=== PATIENT | female | born 1955 | race Caucasian/White ===

== ENCOUNTER 2016-10-16 03:47 | Inpatient (IN) ==
[2016-10-11 15:45] LABS: URINE MICRO REVIEW NEEDED? NO; URINE SOURCE VOIDED
[2016-10-11 15:50] LABS: BILIRUBIN URINE NEGATIVE (NEGATIVE); BLOOD URINE NEGATIVE (NEGATIVE); COLOR YELLOW; GLUCOSE URINE NEGATIVE (NEGATIVE); LEUKOCYTES URINE NEGATIVE (NEGATIVE); NITRITE URINE NEGATIVE (NEGATIVE); PROTEIN URINE NEGATIVE (NEGATIVE); SP GRAVITY URINE 1.003; TURBIDITY URINE CLEAR (CLEAR); UROBILINOGEN URINE NORMAL (NORMAL)
[2016-10-11 15:51] LABS: HEMATOCRIT 38.9 % (37.0-47.0); HEMOGLOBIN 13.2 g/dL (12.0-16.0); MCH 30.3 PG (27-31); MCHC 33.9 g/dL (33-37); MCV 89.2 FL (81-99); RBC 4.36 XMIL (4.2-5.4)
--- NOTE | 2016-10-11 15:51 | EKG Report ---
Test Performed on : 10/11/2016 3:33:14 PM Test Reason : PAT Blood Pressure : / mmHG Vent. Rate : 065 BPM Atrial Rate : 065 BPM P-R Int : 154 ms QRS Dur : 080 ms QT Int : 426 ms P-R-T Axes : 078 070 074 degrees QTc Int : 443 ms Normal sinus rhythm. Normal ECG No previous ECGs available Confirmed by Ginny MARQUEZ, Christopher Amaya ([id number]) on 10/12/2016 7:03:33 AM
[2016-10-11 15:52] LABS: UR EPITHELIAL CELLS <10 /HPF (<10); URINE BACTERIA NEGATIVE /HPF; URINE RBC <10 /HPF (<10); URINE WBC <10 /HPF (<10)
[2016-10-11 16:16] LABS: AGAP 12; ALBUMIN 4.7 g/dL (3.5-5.0); ALKALINE PHOSPHATASE 62 U/L (32-104); BUN 10 mg/dL (8-22); CALCIUM 9.6 mg/dL (8.8-10.2); CHLORIDE 100 mmol/L (98-107); COSMO 278; GOT 17 U/L (10-30); GPT 12 U/L (10-36); SODIUM 140 mmol/L (136-145); TCO2 28 mmol/L (25-35); TOTAL PROTEIN 6.8 g/dL (6.3-8.3)
[2016-10-16] MEDS ORDERED: PEPCID ONE (06:56)
[2016-10-16] MEDS ORDERED: LOVENOX ONE (06:56)
[2016-10-16] MEDS ORDERED: REGLAN ONE (06:56)
[2016-10-16] MEDS ORDERED: TRANSDERM-SCOP ONE (06:56)
[2016-10-16] MEDS ORDERED: LR 1,000 ML ONE ×2 (06:57→12:25)
[2016-10-16] MEDS ORDERED: KEFZOL 2 GM/D5W 2 GM/50 ML IVPB ONE (06:57)
[2016-10-16] MEDS ORDERED: VALIUM ONE (07:35)
[2016-10-16] MEDS ORDERED: MURI-LUBE MINERAL OIL ONE (10:44)
[2016-10-16] MEDS ORDERED: EXPAREL 1.3% ONE (10:44)
[2016-10-16] MEDS ORDERED: NS 250 ML ONE ×2 (10:44→15:27)
[2016-10-16] MEDS ORDERED: BACITRACIN ONE (10:44)
[2016-10-16] MEDS ORDERED: METHYLENE BLUE 0.5% ONE (10:46)
--- NOTE | 2016-10-16 11:10 | Diag Imaging Result Doc PS360 ---
LYMPHOSCINTIGRAPHY W/IMG - 10/16/2016 INDICATION: L-MAST COMPARISON: None FINDINGS: 479 uCi of radiotracer was injected into the left breast. After the appropriate delay, there was successful visualization of at least one sentinel lymph node in the axilla. IMPRESSION: Successful lymphoscintigraphy of the breast. Electronically signed by Zeke Armendariz 10/16/2016 11:07 AM
[2016-10-16] MEDS ORDERED: SUFENTA ONE (11:44)
[2016-10-16 14:02] LABS: URINE MICRO REVIEW NEEDED? NO; URINE SOURCE CATH
[2016-10-16 14:05] LABS: BILIRUBIN URINE NEGATIVE (NEGATIVE); BLOOD URINE NEGATIVE (NEGATIVE); COLOR YELLOW; GLUCOSE URINE NEGATIVE (NEGATIVE); LEUKOCYTES URINE NEGATIVE (NEGATIVE); NITRITE URINE NEGATIVE (NEGATIVE); PH URINE 6.5; PROTEIN URINE NEGATIVE (NEGATIVE); SP GRAVITY URINE 1.011; TURBIDITY URINE CLEAR (CLEAR); UR EPITHELIAL CELLS <10 /HPF (<10); URINE BACTERIA NEGATIVE /HPF; URINE RBC <10 /HPF (<10); URINE WBC <10 /HPF (<10); UROBILINOGEN URINE NORMAL (NORMAL)
[2016-10-16] MEDS ORDERED: NS 2,000 ML ONE (14:52)
[2016-10-16] MEDS ORDERED: KEFZOL 1 GM/D5W 1 GM/50 ML IVPB ONE (15:53)
[2016-10-16] MEDS: DEMEROL ONE ×2 (18:15→18:58)
[2016-10-16] MEDS ORDERED: VERSED ONE (18:19)
[2016-10-16] MEDS ORDERED: DIPRIVAN 1% ONE (18:20)
[2016-10-16] MEDS ORDERED: MORPHINE PCA ONE (18:38)
[2016-10-16] MEDS ORDERED: MORPHINE PCA IV PRN ×2 (18:47→21:27)
[2016-10-16] MEDS ORDERED: ZOFRAN IV PRN ×2 (18:47→21:27)
[2016-10-16] MEDS ORDERED: NARCAN IV PRN ×2 (18:47→21:27)
[2016-10-16] MEDS ORDERED: NARCAN 0.4 MG in LR 1,000 ML IV PRN (18:47)
[2016-10-16] MEDS ORDERED: DEMEROL ONE (18:57)
[2016-10-16] MEDS ORDERED: LR 1,000 ML IV SCH (21:27)
[2016-10-16] MEDS: PERIDEX MT SCH (21:46)
--- NOTE | 2016-10-16 21:47 | OPERATIVE NOTE ---
PROCEDURE DATE: 10/16/2016 PREOPERATIVE DIAGNOSIS: 1. 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 2. Previous breast implants. POSTOPERATIVE DIAGNOSIS: 1. 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 2. Previous breast implants. PROCEDURE: 1. Left mastectomy and sentinel lymph node biopsy. 2. [place] lymph node mapping. 3. Removal of left breast implant. SURGEON: Rasheed Moore MD. PLASTICS NURSE: Dr. Yin with Plastic Surgery assisted with the removal of the implant and the mastectomy. ANESTHESIA: General endotracheal. INTRAOPERATIVE FINDINGS: As above. COMPLICATIONS: None at time of dictation. ESTIMATED BLOOD LOSS: 50 mL. SPECIMENS REMOVED: Breast tissue, with single stitch being superior, double stitch being medial. [place] lymph node #1 with a count of 7481. [place] lymph node #2 with a count of 123. BRIEF HISTORY: The patient is a 60-year-old female with biopsy- proven breast cancer in her left upper outer breast. She does have breast implants with very small [place] breast tissue. Given this, we elected to do a mastectomy and sentinel lymph node biopsy and had Dr. Yin coordinate to do reconstruction. He assisted in the dissection to remove the implant. The risks, benefits and alternatives were discussed. All questions answered. DESCRIPTION OF PROCEDURE: After informed consent was obtained, patient brought to the operative theatre, transferred to operating table, placed in supine position. General endotracheal anesthesia was then performed without complication. A formal time-out was then performed, confirming patient, date, procedure. All were agreement. At that time, attention to the left breast. This area was prepped and draped in sterile fashion. She had previously gone down to nuclear medicine and had an injection. We did find an area of uptake in her left axilla. We made an elliptical incision per the markings for reconstruction by Dr. Yin through the subcutaneous tissue, down through the [place] breast tissue. Her [place] breast tissue was somewhat distorted given her left breast implant. We encountered the capsule of the implant inferiorly. We encountered the pectoralis major superiorly. We dissected with our landmarks being medial the sternum, superiorly the clavicle, laterally the axilla and inferiorly along the edge of the capsule. We did remove the breast implant along with the capsular tissue all the way down to the pectoralis major. We oriented the breast as described above. We then did sentinel lymph node mapping, found uptake in the left axilla, found 2 areas that were sent down to Pathology. The first one was labeled sentinel lymph node #1, contained 3 lymph nodes that were all negative on preliminary evaluation. The 2nd specimen labeled sentinel lymph node #2 contained two lymph nodes that were preliminarily negative for cancer. We irrigated the area. We turned the case over to Dr. Yin for reconstruction. Please see his notes and his dictation. cc: Rasheed Moore MD [facility]
[2016-10-16] MEDS: KEFZOL 1 GM/D5W 1 GM/50 ML IVPB IV SCH (23:32)
[2016-10-17] MEDS: LR 1,000 ML IV SCH ×6 (02:22→23:01)
[2016-10-17] MEDS: KEFZOL 1 GM/D5W 1 GM/50 ML IVPB IV SCH ×3 (06:32→22:31)
--- NOTE | 2016-10-17 06:34 | PROGRESS NOTE ---
DATE: 10/17/2016 SUBJECTIVE: The patient doing well. She has some soreness from her procedure but otherwise doing okay. She also reports some mild nausea but is able tolerate p.o. OBJECTIVE: Vital Signs: Patient is currently afebrile. Her vital signs are stable. DONAVAN drain outputs for DONAVAN drain #1-7 reviewed. All appear to have serosanguineous output. General: No acute distress. Cardiovascular: Regular rate and rhythm. Lungs: Grossly clear. Chest wall incision is healing okay with dressing in place. No obvious hematoma noted. DONAVAN drains as noted above. LABORATORY: None. ASSESSMENT/PLAN: A 60-year-old female, status post left mastectomy with sentinel lymph node biopsy and breast reconstruction with latissimus dorsi flap. Postoperative state at this time, patient is doing relatively well. Her care in the hospital will be mainly determined by Dr. Yin. DONAVAN drains per Dr. Yin, but hopefully she will go home the next day or 2. cc: Rasheed Moore MD
[2016-10-17] MEDS ORDERED: LUBRIFRESH PM OPH OINTMENT ONE (07:09)
[2016-10-17] MEDS ORDERED: ZOFRAN ONE (07:09)
[2016-10-17] MEDS ORDERED: STERILE WATER INJ. ONE (07:09)
[2016-10-17] MEDS ORDERED: NEOSTIGMINE ONE (07:09)
[2016-10-17] MEDS ORDERED: NEO-SYNEPHRINE ONE (07:09)
[2016-10-17] MEDS ORDERED: XYLOCAINE-MPF 2% ONE (07:10)
[2016-10-17] MEDS ORDERED: ROBINUL ONE (07:10)
[2016-10-17] MEDS ORDERED: QUELICIN (DOSE) ONE (07:10)
[2016-10-17] MEDS ORDERED: LR 3,000 ML ONE (07:10)
[2016-10-17] MEDS: PERIDEX MT SCH ×2 (08:40→22:32)
--- NOTE | 2016-10-17 15:19 | OPERATIVE NOTE ---
PROCEDURE DATE: 10/17/2016 PROCEDURE: Left breast reconstruction with a left latissimus dorsi flap and a placement of a left tissue chimney supervisor brick. SURGEON: Dr. Paresh Yin. The ICD 10 diagnose code for this case is Z85.3, personal history [place]. [place] [address] latissimus dorsi flap and 32580, tissue chimney supervisor brick. INDICATION FOR PROCEDURE: This patient is a 60-year-old, white female with a left breast cancer which is complicated by the fact that it is in the upper outer quadrant and it is over old saline implants that were placed many years ago. She needs a mastectomy to take care of the cancer and her reconstruction is complicated by the fact that her tissues will be thinned out by the previous augmentation. So, the plan is to do the mastectomy along with Dr. Moore so that we can remove the tumor and deal with the implant and then because her tissue will be stretched out she will not have enough muscular coverage for regular tissue chimney supervisor brick reconstruction so our plan is to do a latissimus dorsi flap to bring in healthy tissue. DESCRIPTION OF PROCEDURE: The patient was brought to the operating room. The patient was seen in the office for informed consent for this procedure on 10/11/2016. At that point, she understood that she would have her reconstruction with latissimus dorsi flap after the mastectomy and we would either put in an implant or chimney supervisor brick depending on how tight the tissues felt. She understood there would be a period of time where she would not have optimal breast shape. She knows the risks include infection, blood loss, blood clots in legs, heart problems, lung problems, allergic reactions, or blood and serum collections in the operative sites which might require drainage. She understands the exact size and shape cannot be guaranteed as with nonoperative breasts, there can be some asymmetry from side to side. She understands we will use her latissimus dorsi muscle from the left side. It will not affect her arm use. She knows where her incisions will be on the front of the chest where we have to inset the ellipse and where her donor site scar will be on the back of the chest. PROCEDURE: The patient was brought to the operating room after she was marked in outpatient surgery for the elliptical excision. She went to the operating room, and was prepped and draped from the back to the front. The mastectomy was performed assisting Dr. Moore as we did the elliptical excision and removed the implant and raised the mastectomy flaps. He subsequently did sentinel node biopsy and then the reconstruction began. The ellipse of the latissimus dorsi flap was elevated on the back on the back over the muscle. Then the anterior border of the muscle was identified. The skin flaps were elevated to free the muscle and the muscle was cut away from the chest dealing with the bleeders with electrocautery. Once it was freed up, and it was able to be rotated it was brought through a hole that was made through the axilla and brought to the front of the chest. Two drains were placed in the donor site. It was temporally tacked closed with silk sutures and it was closed with 2-0 Polysorb interrupted sutures in the fibrous fat, a running 3-0 Polysorb deep dermal suture, followed by running 4-0 Biosyn subcuticular stitch. On the anterior chest the latissimus muscle was sutured into the inframammary fold and the bottom border of the pectoralis muscle with some 3-0 Polysorb sutures. The implant that was removed from the patient was labeled as a 375 implant. It was saline filled. The blueprint clerk was not stamped on the implant. So a 330 mL sizer was placed into the pocket and filled to 360. It was noted that we would not be able to get up to this volume with this patient because the elliptical excision for the mastectomy was wider than the ellipse of skin I did bring in from the back so things would be too tight and I did not want to risk ruining perfusion to the flap. Therefore it was decided to put in an chimney supervisor brick in this patient and stretch out the skin later after she was healed. So a 400 mL [place] chimney supervisor brick was placed into the pocket. It was filled to 200 mL and then the muscle was closed and the skin was temporally tacked closed. The skin was closed with some 3-0 Polysorb interrupted deep dermal sutures and then a running 4-0 Biosyn subcuticular stitch. Drains were placed under and over the implant and on the superior inferior skin flaps, and a 10-Czech drain was placed in the lymph node sampling area. That was isolated from the rest of the skin pocket by closing down the fat. All the drains were secured with silk drain stitches. She tolerated the procedure well. The type of chimney supervisor brick that was used in the patient was an [employer] 133 MB- 13-T implant. It is a 400 mL size chimney supervisor brick. It was filled to 200 mL in the operating room. cc: MD Rasheed Cano MD
[2016-10-18] MEDS: KEFZOL 1 GM/D5W 1 GM/50 ML IVPB IV SCH ×3 (06:13→16:07)
--- NOTE | 2016-10-18 06:25 | PROGRESS NOTE ---
DATE: 10/18/2016 SUBJECTIVE: Patient doing well. OBJECTIVE: Vital Signs: Patient is currently afebrile. Her vital signs are stable. Is and Os: DONAVAN drain output is reviewed, all appeared serosanguineous. General Examination: No acute distress. Cardiovascular: Regular rate and rhythm. Lungs: Grossly clear. Chest: Chest wall incision is healing well with dressing in place. No obvious hematoma noted. DONAVAN drains as noted above. Laboratory: None. ASSESSMENT/PLAN: A 60-year-old, female status post left mastectomy and sentinel lymph node biopsy with breast reconstruction with latissimus dorsi flap. Patient is currently doing well. There is potential for discharge later today by Dr. Yin. cc: Rasheed Moore MD
[2016-10-18] MEDS: PERIDEX MT SCH (09:32)
[2016-10-18] MEDS: NORCO-10 PO PRN ×3 (09:41→18:00)
[2016-10-18] MEDS: LR 1,000 ML IV SCH (14:39)
[2016-10-18 15:58] VITALS: BP 101/58
--- NOTE | 2016-10-18 18:19 | DISCHARGE SUMMARY ---
ADMISSION DATE: 10/16/2016 DISCHARGE DATE: 10/18/2016 ADMISSION DIAGNOSIS: Left breast cancer. DISCHARGE DIAGNOSIS: Left breast cancer. HOSPITAL COURSE: The patient has been at the hospital via outpatient surgery where preoperative loera were made for a mastectomy to be performed by Dr. Rasheed Moore and breast reconstruction with a left latissimus dorsi flap. The patient went to the operating room and had an uncomplicated mastectomy and an uncomplicated latissimus dorsi flap which was used to cover a 400 mL tissue medical photographer on the left side. She has done well on the floor. Her flap has good color. All the drains are functioning well. Dressings are intact. She will be seen in the office tomorrow for a dressing change and drain management. She already has all of her prescriptions that were written for her during her preoperative visit for the surgery. cc: MD Rasheed Cano MD
== END 2016-10-18 18:24 | disposition home or self-care (01) ==
LOC: SURHOLD 03:47 → 4N 13:26
PROVIDERS: ADMIT Surgery; ATTEND Surgery